=== PATIENT | female | born 1995 | race Caucasian/White ===

== ENCOUNTER 2016-11-21 21:06 | Observation (INO) | payer MEDICAID ==
[~2016-11-21] VITALS: Ht 175.3 cm; Wt 61.2 kg
[2016-11-21] VITALS (7 sets, daily range): BP systolic 108–124; BP diastolic 67–73; PULSE 110–132; RESP 18; TEMP 97.8
[~2016-11-21 21:06] MED LIST: CEPH-460 PO
[2016-11-21] MEDS ORDERED: LACTATED RINGER'S 1000 ML INJ 1,000 ML IV SCH (21:22)
--- NOTE | 2016-11-21 21:26 | PD ---
HPI Travel History International Travel<30 Days: No Contact w/Intl Traveler<30Days: No Known Affected Area: No History of Present Illness HPI This patient is a 21-year-old 1 para 0 EDC is January 07, 2017 at 33 weeks and 2 days she presents with the chief complaint of suprapubic lower abdominal pain since 5 PM no ruptured membranes no vaginal bleeding the baby is active she was in the sun for 3 hours today and severely sunburn on both lower extremities the pain is described as sharp intermittent she denies any urinary tract symptoms no dysuria she does have urinary frequency but no urgency no dribbling No fever possible chills History Past Medical History Narrative Medical No known drug allergies no major medical problems Obstetric History Obstetric History History of back surgery she has rods in her back Was hospitalized for kidney infection at age 5 Past Surgical History Narrative Surgical Back surgery Family History Family History: Negative Social History Alcohol Use: No Tobacco Use: No (stopped smoking) Substance Abuse: No Allergies-Medications (Allergen,Severity, Reaction): Coded Allergies: No Known Allergies (Verified , 06/29/16) Home Meds Active Scripts Cephalexin (Keflex)500 Mg [id number] Mg PO Q8H #30 CAP Ref 0 Prov:Ervin Morrison MD 06/29/16 Review of Systems General / Constitutional: Chills Eyes: No: Diploplia, Blurred Vision, Visual changes, Pain, Photophobia, Other HENT: No: Headaches, Vertigo, Dental Difficulties, Lightheadedness, Other Cardiovascular: No: Irregular Rhythm, Chest Pain or Discomfort, Palpitations, Tachycardia, Syncope, Varicosities, Edema, Cyanosis, Other Respiratory: No: Cough, Short of Breath, Wheezing, Other Gastrointestinal: Abdominal Pain (as per history of present illness), Other ( urinary frequency) Genitourinary: Frequency Neurologic: No: Weakness, Dizziness, Syncope, Focal Abnormalities, Coordination Problem, Headache, Slurred Speech, Seizures, Other Psychiatric: No: Anxiety, Depression, Suicidal Ideations, Disorder of Thought, Mood Disorder, Substance Abuse, Homicidal Ideation, Other Physical Exam Narrative GENERAL: Well-nourished, well-developed patient. Alert oriented 3 and cooperative in moderate distress secondary to a sunburn SKIN: Warm and dry. HEAD: Normocephalic and atraumatic. EYES: No scleral icterus. No injection or drainage. ENT: No nasal drainage noted. Mucous membranes pink. Airway patent. NECK: Supple, trachea midline. No JVD. CARDIOVASCULAR: Regular rate and rhythm without murmurs, gallops, or rubs. RESPIRATORY: Breath sounds equal bilaterally. No accessory muscle use. ABDOMEN/GI: Abdomen soft, non-tender, bowel sounds present, no rebound, no guarding gravid consistent with stated gestational age of 33 weeks soft nontender no palpable contractions no epigastric or right upper quadrant tenderness no rebound tenderness Gravid to [-] weeks size 33 weeks Fundal Height: [-] GENITOURINARY: External Genitalia: intact and normal in appearance BUS glands: [-] Cervix: [-] Posterior soft Dilatation: [-] Closed Effacement: [-] 25% effaced Station: [-] Ballotable Presentation: [-] Vertex Membranes: [intact Uterine Contractions: [-] Irritability FHT's: Category: [-] 1 Baseline: [-]150 Reactive: [-] + Variability: [-] Moderate Decels: [-] 0 EXTREMITIES: No cyanosis trace edema of her lower extremities severe sunburn of both the anterior surface of both lower extremities and abdomen NEUROLOGICAL: Awake and alert. Motor and sensory grossly within normal limits. Five out of 5 muscle strength in all muscle groups. Normal speech. Data Data Vital Signs Reviewed: Yes (blood pressures 124/73 pulse is 117 temperatures 97.8) Orders Vital Signs (Adult) .ON ADMISSION (11/21/16 21:22) ^ Labor Status (11/21/16 21:22) Urinalysis - C+S If Indicated (11/21/16 21:22) ^ Hydration (11/21/16 21:22) Lactated Ringer's 1000 Ml Inj (Lr 1000 M (11/21/16 21:22) MDM Medical Record Reviewed: No Interpretation(s) 21-year-old at 33 weeks and 2 days Not in labor Severe sunburn lower extremities Dehydration Uterine irritability Narrative Course / MDM Urinalysis was indicative of urinary tract infection Patient given IV fluid hydration and Rocephin 1 g IV With monitor adjusted patient having contractions every 2 minutes she is not feeling them reexamination of the cervix indicates no cervical change Baby appeared to have had variable decelerations however presently no decelerations and no decelerations with contractions i.e. negative contraction stress test Bedside ultrasound shows the amniotic fluid index of 13 BPD consistent with 35 weeks In view of the variable decelerations and the consistent contractions spoke with Dr. Gale we'll admit the patient overnight for 24-hour observation Procardia by mouth for the contractions if they do not resolve magnesium sulfate We'll continue monitoring as well as IV fluid hydration CBC CMP urine drug screen pending Plan External monitoring IV fluid hydration with lactated Ringer's at 1 25 cc an hour bolus with about 300 cc Urinalysis Silvadene cream for the burn Reevaluation Diagnosis Diagnosis: Primary Impression: 33 weeks gestation of Additional Impressions: Sunburn Dehydration Josseline Finnegan MD Nov 21, 2016 21:25
[2016-11-21] MEDS ORDERED: CALAMINE LOTION 180 APPLIC/180 ML BTL TOPICAL ONE (21:45)
[2016-11-21 21:53] LABS: BACTERIA, URINE MOD /hpf; BLOOD, URINE NEG (NEG); COMMENT (UR) CULTURE INDICATED; CULTURE IF INDICATED CULTURE INDICATED; GLUCOSE,URINE NEG (NEG); KETONE, URINE NEG (NEG); MUCUS URINE MANY /lpf (OCC); NITRITE,URINE NEG (NEG); SQUAMOUS EPITHELIAL CELL URINE 27 /hpf (0-5); TRANSITIONAL EPI CELLS, URINE 1 /hpf; URINE COLOR YELLOW (YELLW/STRAW)
[2016-11-21] MEDS ORDERED: cefTRIAXone 1,000 MG/NS 100 ML IV ONE ×2 (22:45)
[2016-11-21] MEDS ORDERED: SODIUM CHLOR 0.9% 1000 ML INJ 1,000 ML IV ONE (22:45)
[2016-11-21] MEDS ORDERED: ACETAMINOPHEN 325 MG TAB PO ONE (23:30)
[2016-11-21 23:59] LABS: AUTOMATED NEUTROPHIL # 14.1 TH/MM3 (1.8-7.7); BASOPHIL # 0.1 TH/MM3 (0-0.2); BASOPHIL % 0.5 % (0.0-2.0); EOSINOPHIL # 0.1 TH/MM3 (0-0.4); EOSINOPHIL % 0.3 % (0.0-4.0); HEMATOCRIT 33.3 % (35.0-46.0); HEMO FLAGS DIFF FINAL; LYMPH % 5.6 % (9.0-44.0); LYMPHOCYTE # 0.9 TH/MM3 (1.0-4.8); MEAN CELL VOLUME 86.6 FL (80.0-100.0); MEAN CORPUSCULAR HEMOGLOBIN 28.3 PG (27.0-34.0); MEAN CORPUSCULAR HGB CONC 32.7 % (32.0-36.0); MONO % 9.3 % (0.0-8.0); NEUT % 84.3 % (16.0-70.0); PLATELET COUNT 302 TH/MM3 (150-450); RED BLOOD COUNT 3.85 MIL/MM3 (4.00-5.30); WHITE BLOOD COUNT 16.7 TH/MM3 (4.0-11.0)
[2016-11-22] VITALS: RESP 18
[2016-11-22] MEDS ORDERED: LACTATED RINGER'S 1000 ML INJ 1,000 ML IV SCH (00:06)
[2016-11-22] MEDS ORDERED: SODIUM CHLORIDE 0.9% FLUSH 10 ML FLUSH IV FLUSH PRN (00:15)
[2016-11-22] MEDS ORDERED: ONDANSETRON HCL 4 MG/2 ML VIAL IV PRN (00:15)
[2016-11-22] MEDS ORDERED: BETAMETHASONE SOD PHOS/ACETATE SUSP 30 MG/5 ML VIAL IM SCH (00:15)
[2016-11-22] MEDS ORDERED: ACETAMINOPHEN 325 MG TAB PO PRN (00:15)
[2016-11-22] MEDS ORDERED: ZOLPIDEM TARTRATE 5 MG TAB PO PRN (00:15)
[2016-11-22 00:16] LABS: ALT (GPT) 15 U/L (9-42); ANION GAP 9 MEQ/L (5-15); AST (GOT) 13 U/L (16-38); BICARBONATE 23.9 MEQ/L (21.0-32.0); BLOOD UREA NITROGEN 9 MG/DL (7-18); CHLORIDE 104 MEQ/L (98-107); GLOMERULAR FILTRATION RATE 141 ML/MIN (>89); SODIUM (NA) 137 MEQ/L (136-145)
[2016-11-22 00:18] LABS: ALKALINE PHOSPHATASE 166 U/L (45-117); TOTAL BILIRUBIN ADULT 0.4 MG/DL (0.2-1.0)
[2016-11-22] MEDS: NIFEdipine 10 MG CAP PO SCH ×2 (00:21→08:51)
[2016-11-22 00:54] VITALS: BP 100/58; PULSE 121
[2016-11-22 01:13] LABS: AMPHETAMINE, URINE NEG (NEG); BARBITURATES, URINE NEG (NEG); COCAINE, URINE NEG (NEG)
--- NOTE | 2016-11-22 07:41 | PD.OB.ANTE ---
Subjective Diagnosis: (1) Dehydration Diagnosis: Principal (2) 33 weeks gestation of Diagnosis: Principal (3) Sunburn Diagnosis: Principal (4) UTI (urinary tract infection) Diagnosis: Principal Antepartum ROS: Reports: movement normal, Denies: New complaints, Loss of fluid, Vaginal bleeding, Contractions, Other Objective Vital Signs Vital Signs Date Time Temp Pulse Resp B/P Pulse Ox O2 Delivery O2 Flow Rate FiO2 11/22/16 00:54 121 100/58 11/22/16 00:00 18 11/21/16 23:55 118 11/21/16 23:54 117 108/67 11/21/16 23:50 110 11/21/16 23:45 117 11/21/16 21:30 18 11/21/16 21:27 132 124/73 11/21/16 21:27 97.8 11/21/16 21:25 122 Lab & Micro Results Test 11/21/16 11/21/16 21:20 21:45 Urine Color YELLOW Urine Turbidity HAZY Urine pH 6.0 Urine Specific [place] 1.029 Urine Protein 30 mg/dL Urine Glucose (UA) NEG mg/dL Urine Ketones NEG mg/dL Urine Occult Blood NEG Urine Nitrite NEG Urine Bilirubin NEG Urine Urobilinogen 2.0 MG/DL Urine Leukocyte Esterase LARGE Urine RBC 6 /hpf Urine WBC 71 /hpf Urine Squamous Epithelial 27 /hpf Cells Urine Transitional Epithelial 1 /hpf Cells Urine Bacteria MOD /hpf Urine Mucus MANY /lpf Microscopic Urinalysis Comment CULTURE INDICATED Urine Opiates Screen NEG Urine Barbiturates Screen NEG Urine Amphetamines Screen NEG Urine Benzodiazepines Screen NEG Urine Cocaine Screen NEG Urine Cannabinoids Screen NEG White Blood Count 16.7 TH/MM3 Red Blood Count 3.85 MIL/MM3 Hemoglobin 10.9 GM/DL Hematocrit 33.3 % Mean Corpuscular Volume 86.6 FL Mean Corpuscular Hemoglobin 28.3 PG Mean Corpuscular Hemoglobin 32.7 % Concent Red Cell Distribution Width 13.0 % Platelet Count 302 TH/MM3 Mean Platelet Volume 8.7 FL Neutrophils (%) (Auto) 84.3 % Lymphocytes (%) (Auto) 5.6 % Monocytes (%) (Auto) 9.3 % Eosinophils (%) (Auto) 0.3 % Basophils (%) (Auto) 0.5 % Neutrophils # (Auto) 14.1 TH/MM3 Lymphocytes # (Auto) 0.9 TH/MM3 Monocytes # (Auto) 1.6 TH/MM3 Eosinophils # (Auto) 0.1 TH/MM3 Basophils # (Auto) 0.1 TH/MM3 CBC Comment DIFF FINAL Differential Comment Sodium Level 137 MEQ/L Potassium Level 4.0 MEQ/L Chloride Level 104 MEQ/L Carbon Dioxide Level 23.9 MEQ/L Anion Gap 9 MEQ/L Blood Urea Nitrogen 9 MG/DL Creatinine 0.55 MG/DL Estimat Glomerular Filtration 141 ML/MIN Rate Random Glucose 78 MG/DL Calcium Level 8.7 MG/DL Total Bilirubin 0.4 MG/DL Aspartate Amino Transf 13 U/L (AST/SGOT) Alanine Aminotransferase 15 U/L (ALT/SGPT) Alkaline Phosphatase 166 U/L Total Protein 7.2 GM/DL Albumin 3.1 GM/DL Date/Time Procedure Status Source Growth 11/21/16 21:20 Urine Culture Received Urine Clean Catch Pending Physical Exam GENERAL: Well-nourished, well-developed patient. CARDIOVASCULAR: Regular rate and rhythm without murmurs, gallops, or rubs. RESPIRATORY: Breath sounds equal bilaterally. No accessory muscle use. ABDOMEN/GI: Abdomen soft, non-tender. Fundus: [33] GENITOURINARY: External Genitalia: intact and normal in appearance Cervix: [post] Dilatation: [cl] Effacement: [25] Station: [-3] Presentation: [vtx] Membranes: [-] Uterine Contractions: [none] FHT's: Category: [I] Baseline: [120] Reactive: [y] Variability: [y] Decels: [n] EXTREMITIES: No cyanosis or edema, non-tender, without signs of DVT. Assessment and Plan Problem List: (1) UTI (urinary tract infection) Status: Acute (2) 33 weeks gestation of Status: Acute (3) Dehydration Status: Acute (4) Sunburn Status: Acute Assessment and Plan 21 yo G1 at 33w3d admit overnight for c/o contractions, finding of UTI and dehydration with recent over-sun exposure and severe sunburn on LE b/l 1) ctx: resolved s/p IV fluid hydration, cervix remains closed; pt did receive single dose of IM betamethasone on admission 2) sunburn: feeling better s/p topical burn cream, was given tube for discharge 3) UTI: s/p IV Rocephin, will plan repeat UCx in 1 week 4) dispo: d/c to home today, has office f/u tmrw with ultrasound with Nidhi Arora MD Nov 22, 2016 07:40
--- NOTE | 2016-11-22 07:44 | HHI.DCPOC ---
Discharge Care Plan Diagnosis: (1) Dehydration (2) 33 weeks gestation of Your Health Problems Are: Urinary difficulties Report Symptoms to Your Doctor -Temperate above 100.5 degrees -Redness, of incision or excessive or foul smelling drainage -Unusual pain or calf pain -Increased vaginal bleeding -Painful or difficulty urinating -Feelings of extreme sadness or anxiety after 2 weeks Goals to Promote Your Health * To prevent worsening of your condition and complications * To maintain your health at the optimal level Directions to Meet Your Goals Take your medications as prescribed Follow your dietary instruction Follow activity as directed Ensure plenty of rest for recovery Drink fluids for hydration Keep your appointments as scheduled Take your immunizations and boosters as scheduled If your symptoms worsen call your PCP, if no PCP go to Urgent Care Center or Emergency Room Smoking is Dangerous to Your Health. Avoid second hand smoke Call the 24-hour crisis hotline for domestic abuse at Nidhi Mims MD Nov 22, 2016 07:44
[2016-11-22] MEDS ORDERED: SODIUM CHLORIDE 0.9% FLUSH 10 ML FLUSH IV FLUSH SCH (09:00)
[2016-11-25 10:27] LABS: PHENCYCLIDINE URINE NEG (NEG)
[2016-11-25 10:28] LABS: BATH SALTS (MDPV) UR NEG (NEG); ECSTASY (MDMA) UR NEG (NEG); HEROIN (6-ACETYLMORPHINE) UR NEG (NEG); K2 SPICE UR NEG (NEG); OBMETHADONE UR NEG (NEG); OXYCODONE (PERCODAN) NEG (NEG)
== END 2016-11-22 13:14 | disposition home or self-care (01) ==
LOC: HOBED 21:06 → H2EA 11-22 00:16
PROVIDERS: ADMIT Obstetrics & Gynecology; ATTEND Obstetrics & Gynecology
DX: O26.93 Pregnancy related conditions, unspecified, third trimester (principal); Z3A.33 33 weeks gestation of pregnancy; O23.43 Unspecified infection of urinary tract in pregnancy, third trimester; E86.0 Dehydration; L55.9 Sunburn, unspecified; B96.89 Other specified bacterial agents as the cause of diseases classified elsewhere
CPT/HCPCS: 76816; 76819; 80053; 80307; 81001; 85025; 87086; 96361; 96374; 99285; G0378; G0481; J0696; J0702; J7030; J7120; 80352; 80354; 80356; 80358; 80359; 80371; 83992; G0480

== ENCOUNTER 2016-11-26 19:04 | Observation (INO) | payer MEDICAID ==
[2016-11-26] MEDS ORDERED: DEXT 5%-NACL 0.9% 1000 ML INJ 1,000 ML IV ONE (19:45)
[2016-11-26] MEDS ORDERED: ONDANSETRON HCL 4 MG/2 ML VIAL IV ONE (19:45)
[2016-11-26 20:16] LABS: HEMATOCRIT 33.4 % (35.0-46.0); MEAN CELL VOLUME 85.7 FL (80.0-100.0); MEAN CORPUSCULAR HEMOGLOBIN 27.8 PG (27.0-34.0); MEAN CORPUSCULAR HGB CONC 32.4 % (32.0-36.0); PLATELET COUNT 261 TH/MM3 (150-450); RED CELL DISTRIBUTION WIDTH 12.9 % (11.6-17.2); REVIEW FLAG FINAL; WHITE BLOOD COUNT 11.6 TH/MM3 (4.0-11.0)
[2016-11-26 20:22] LABS: BLOOD, URINE NEG (NEG); COMMENT (UR) CULT NOT INDICATED; CULTURE IF INDICATED CULT NOT INDICATED; GLUCOSE,URINE NEG (NEG); KETONE, URINE 80 mg/dL (NEG); MUCUS URINE FEW /lpf (OCC); NITRITE,URINE NEG (NEG); SQUAMOUS EPITHELIAL CELL URINE 18 /hpf (0-5); URINE COLOR YELLOW (YELLW/STRAW)
[2016-11-26 20:45] LABS: ANION GAP 11 MEQ/L (5-15); AST (GOT) 16 U/L (16-38); BICARBONATE 23.4 MEQ/L (21.0-32.0); BLOOD UREA NITROGEN 7 MG/DL (7-18); CHLORIDE 102 MEQ/L (98-107); GLOMERULAR FILTRATION RATE 141 ML/MIN (>89); POTASSIUM 3.9 MEQ/L (3.5-5.1); SODIUM (NA) 136 MEQ/L (136-145)
[2016-11-26 20:48] LABS: ALKALINE PHOSPHATASE 163 U/L (45-117); ALT (GPT) 13 U/L (9-42); TOTAL BILIRUBIN ADULT 0.6 MG/DL (0.2-1.0)
--- NOTE | 2016-11-26 21:45 | HHI.HP ---
HPI Chief Complaint Nausea/Vomiting Date Seen: Nov 26, 2016 Time Seen: 21:00 Travel History International Travel<30 Days: No Contact w/Intl Traveler<30Days: No Known Affected Area: No History of Present Illness HPI 21y/o , IUP at 34.0 PNC complicated by recently diagnosed coarctation of the aorta (diagnosed ) Patient presents c/o onset on nausea and vomiting since she got up at about 10: 30 this morning. She reports more than 10 episodes of emesis and has been unable to tolerate any po; she reports that everything she eats or drinks she throws up. She denies any ill contacts or known ingestion of contaminated or spoiled food. There is no aggravating or alleviating factors and no attempted treatments. She denies any diarrhea, fevers, or chills. She reports some mild cramping and tightening that has been occurring since the onset of the nausea and vomiting, but is unable to quantify the time. She reports good FM. She denies any LOF or VB. She has no other ob complaints. Para: 0 : 1 History Past Medical History Medical History: Denies Significant Hx Obstetric History Obstetric History Denies abnl PAPs or STDs Past Surgical History Narrative Surgical H/o spinal fusion with tethered cord and insertion of metal rods Family History Family History: Negative Social History Alcohol Use: No Tobacco Use: No Substance Abuse: No Allergies-Medications (Allergen,Severity, Reaction): Coded Allergies: No Known Allergies (Verified , 06/29/16) Home Meds Discontinued Scripts Cephalexin (Keflex)500 Mg [id number] Mg PO Q8H #30 CAP Ref 0 Prov:Ervin Morrison MD 06/29/16 Review of Systems Except as stated in HPI: all other systems reviewed are Neg Gastrointestinal: Nausea, Vomiting, Abdominal Pain Physical Exam Narrative GENERAL: Well-nourished, well-developed patient. A&Ox3 SKIN: Warm and dry. No rashes/lesions except sunburn on anterior portion of bilateral lower extremities, lower left with blistered sunburns HEAD: Normocephalic and atraumatic. EYES: No scleral icterus. No injection or drainage. ENT: No nasal drainage noted. Mucous membranes pink. Airway patent. NECK: Supple, trachea midline. CARDIOVASCULAR: Regular rate and rhythm without murmurs, gallops, or rubs. RESPIRATORY: Breath sounds equal bilaterally. No accessory muscle use. BREASTS: Deferred ABDOMEN/GI: Abdomen soft, non-tender, bowel sounds present, no rebound, no guarding Gravid GENITOURINARY: External Genitalia: intact and normal in appearance BUS glands:normal Cervix: no cervical/vaginal masses, physiologic d/c, FFN collected/discarded , normal rugae, SVE closed/thick/high and posterior/firm Membranes: intact Uterine Contractions: uterine irritability, improved after IV hydration FHT's: 140s and now with moderate LTV, good accels, and no decels. However, a few intermittent variables were noted initially and a spontaneous decel with moderate variability throughout. These resolved with IV hydration, with no further decels noted and currently category 1 tracing EXTREMITIES: No cyanosis or edema. BACK: Nontender without obvious deformity. Psych: grossly normal memory/affect MS grossly normal ROM, gait, muscle strength NEUROLOGICAL: Awake and alert. Motor and sensory grossly within normal limits. Five out of 5 muscle strength in all muscle groups. Normal speech. Data Data Vital Signs Reviewed: Yes Orders Dext 5%-Nacl 0.9% 1000 Ml Inj (D5w-Ns 10 (11/26/16 19:45) Vital Signs (Adult) .ON ADMISSION (11/26/16 19:37) ^ Labor Status (11/26/16 19:37) Urinalysis - C+S If Indicated (11/26/16 19:37) Cbc No Diff, Includes Plts (11/26/16 19:37) Comprehensive Metabolic Panel (11/26/16 19:37) Ondansetron Inj (Zofran Inj) (11/26/16 19:45) Ob (2e) Additional Admit Info (11/26/16 21:07) Labs Laboratory Tests Test 11/26/16 19:59 White Blood Count 11.6 Red Blood Count 3.90 Hemoglobin 10.8 Hematocrit 33.4 Mean Corpuscular Volume 85.7 Mean Corpuscular Hemoglobin 27.8 Mean Corpuscular Hemoglobin 32.4 Concent Red Cell Distribution Width 12.9 Platelet Count 261 Mean Platelet Volume 7.9 Urine Color YELLOW Urine Turbidity HAZY Urine pH 8.0 Urine Specific [place] 1.021 Urine Protein 30 Urine Glucose (UA) NEG Urine Ketones 80 Urine Occult Blood NEG Urine Nitrite NEG Urine Bilirubin NEG Urine Urobilinogen 2.0 Urine Leukocyte Esterase SMALL Urine RBC 3 Urine WBC 6 Urine Squamous Epithelial 18 Cells Urine Mucus FEW Microscopic Urinalysis Comment CULT NOT INDICATED Sodium Level 136 Potassium Level 3.9 Chloride Level 102 Carbon Dioxide Level 23.4 Anion Gap 11 Blood Urea Nitrogen 7 Creatinine 0.55 Estimat Glomerular Filtration 141 Rate Random Glucose 72 Calcium Level 8.3 Total Bilirubin 0.6 Aspartate Amino Transf 16 (AST/SGOT) Alanine Aminotransferase 13 (ALT/SGPT) Alkaline Phosphatase 163 Total Protein 6.8 Albumin 2.7 Assessment/Plan Assessment and Plan A/P: 21y/o 1. IUP at 34.0 2. Nausea/vomiting/dehydration: likely secondary to mild viral gastroenteritis. Patient failed po challenge despite IV hydration/antiemetics. Will admit to Dr. Gee for continued IV hydration and antiemetic therapy overnight. Discussed with Dr. Gee who assumed care for the patient. 3. UA: consistent with dehydration, no culture indicated 4. coarctation of aorta 5. wellbeing: discussed FHR tracing with Dr. Gee with several intermittent variables and a spontaneous deceleration after presentation with resolution and subsequent reactive/reassuring FHR. Will continue EMF monitoring overnight. Attending Attestation NST report: Indications: IUP at 34w, cardiac malformation, N/V, dehydration, abdominal pain with tightening Baseline: 140s Variability: moderate Accels: good accels noted Decels: initailly with a few intermittent variables and one spontaneous deceleration with moderate variability throughout, all just after initial patient presentation, all resolved with IV hydration Reactive: reactive NST Final dx: IUP at 34w, N/V/dehydration from probable viral gastroenteritis, false labor, cardiac defect F/U with continued EFM Saniya Oliveira MD Nov 26, 2016 21:45
[2016-11-26 21:57] VITALS: BP 120/67; PULSE 107
[2016-11-26 21:58] VITALS: RESP 18
[2016-11-26] MEDS ORDERED: SODIUM CHLORIDE 0.9% FLUSH 10 ML FLUSH IV FLUSH SCH (22:00)
[2016-11-26] MEDS ORDERED: DEXTROSE 5%-LACTATED RING INJ 1,000 ML IV SCH (22:00)
[2016-11-26] MEDS ORDERED: ONDANSETRON HCL 4 MG/2 ML VIAL IV PRN (22:00)
[2016-11-26] MEDS ORDERED: SODIUM CHLORIDE 0.9% FLUSH 10 ML FLUSH IV FLUSH PRN (22:00)
--- NOTE | 2016-11-27 08:27 | PD.OB.ANTE ---
Subjective Diagnosis: (1) Nausea and vomiting during Diagnosis: Principal (2) 34 weeks gestation of Diagnosis: Secondary Antepartum ROS: Reports: movement normal, Denies: New complaints, Loss of fluid, Vaginal bleeding, Contractions, Other Objective Vital Signs Vital Signs Date Time Temp Pulse Resp B/P Pulse Ox O2 Delivery O2 Flow Rate FiO2 11/26/16 21:58 18 11/26/16 21:57 107 120/67 Lab & Micro Results Test 11/26/16 11/26/16 19:59 20:48 White Blood Count 11.6 TH/MM3 Red Blood Count 3.90 MIL/MM3 Hemoglobin 10.8 GM/DL Hematocrit 33.4 % Mean Corpuscular Volume 85.7 FL Mean Corpuscular Hemoglobin 27.8 PG Mean Corpuscular Hemoglobin 32.4 % Concent Red Cell Distribution Width 12.9 % Platelet Count 261 TH/MM3 Mean Platelet Volume 7.9 FL Urine Color YELLOW Urine Turbidity HAZY Urine pH 8.0 Urine Specific [place] 1.021 Urine Protein 30 mg/dL Urine Glucose (UA) NEG mg/dL Urine Ketones 80 mg/dL Urine Occult Blood NEG Urine Nitrite NEG Urine Bilirubin NEG Urine Urobilinogen 2.0 MG/DL Urine Leukocyte Esterase SMALL Urine RBC 3 /hpf Urine WBC 6 /hpf Urine Squamous Epithelial 18 /hpf Cells Urine Mucus FEW /lpf Microscopic Urinalysis Comment CULT NOT INDICATED Sodium Level 136 MEQ/L Potassium Level 3.9 MEQ/L Chloride Level 102 MEQ/L Carbon Dioxide Level 23.4 MEQ/L Anion Gap 11 MEQ/L Blood Urea Nitrogen 7 MG/DL Creatinine 0.55 MG/DL Estimat Glomerular Filtration 141 ML/MIN Rate Random Glucose 72 MG/DL Calcium Level 8.3 MG/DL Total Bilirubin 0.6 MG/DL Aspartate Amino Transf 16 U/L (AST/SGOT) Alanine Aminotransferase 13 U/L (ALT/SGPT) Alkaline Phosphatase 163 U/L Total Protein 6.8 GM/DL Albumin 2.7 GM/DL Fibronectin NEGATIVE Physical Exam GENERAL: Well-nourished, well-developed patient. CARDIOVASCULAR: Regular rate and rhythm without murmurs, gallops, or rubs. RESPIRATORY: Breath sounds equal bilaterally. No accessory muscle use. ABDOMEN/GI: Abdomen soft, non-tender. Fundus: [c/w dates] GENITOURINARY: External Genitalia: deferred FHT's: Category: [I] Baseline: [130s] Reactive: [y] Variability: [y] Decels: [n] EXTREMITIES: No cyanosis or edema, non-tender, without signs of DVT. Blistering of L LE from sunburn; healing sunburn on R LE Assessment and Plan Problem List: (1) Nausea and vomiting during Status: Acute (2) 34 weeks gestation of Status: Acute Assessment and Plan A/P: 21y/o 1. IUP at 34.0 2. Nausea/vomiting/dehydration: likely secondary to mild viral gastroenteritis. on admit patient failed po challenge despite IV hydration/antiemetics. Admitted overnight for obs/continued IV hydration and antiemetic therapy; no further episodes of emesis; no diarrhea; normal labs, urine culture neg; d/c to home today with BRAT diet & f/u in office in 2-3 days. 3. coarctation of aorta - Dr. Palacios is primary OB & is in process of transferring care to [facility] as pt needs delivery at level 3 NICU 5. status: Cat I tracing currently. Nidhi Mims MD Nov 27, 2016 08:27
--- NOTE | 2016-11-27 08:31 | HHI.DS ---
Discharge Summary Admission Date Nov 26, 2016 at 21:16 Discharge Date: Nov 27, 2016 Admitting Diagnosis nausea/vomiting, 34 weeks (1) Nausea and vomiting during Diagnosis: Principal (2) 34 weeks gestation of Diagnosis: Secondary Procedures IV fluid hydration, monitoring Brief History 21 yo G1 at 34 wks admit overnight for N/V failed PO challenge, suspected mild viral gastroenteritis. CBC/BMP: 11/26/16195811/26/161958 Significant Findings Laboratory Tests Test 11/26/16 19:59 White Blood Count 11.6 TH/MM3 (4.0-11.0) Red Blood Count 3.90 MIL/MM3 (4.00-5.30) Hemoglobin 10.8 GM/DL (11.6-15.3) Hematocrit 33.4 % (35.0-46.0) Urine Turbidity HAZY (CLEAR) Urine Protein 30 mg/dL (NEG-TRACE) Urine Ketones 80 mg/dL (NEG) Urine Leukocyte Esterase SMALL (NEG) Urine WBC 6 /hpf (0-5) Urine Mucus FEW /lpf (OCC) Random Glucose 72 MG/DL (74-106) Calcium Level 8.3 MG/DL (8.5-10.1) Alkaline Phosphatase 163 U/L (45-117) Albumin 2.7 GM/DL (3.4-5.0) PE at Discharge A&Ox3, NAD, sitting up in bed, talking CTA b/l no wheeze RRR gravid c/w dates deferred LLE with blistering sunburn; RLE with sunburn, intact skin Hospital Course Pt admitted overnight after failing PO challenge in triage; labs wnl, no electrolyte abnormalities, no diarrhea or fevers, urine negative; overnight pt had no further episodes of emesis, suspect mild viral gastroenteritis, discharge to home with precautions and office f/u in 2-3 days. Pt Condition on Discharge: Good Discharge Disposition: Discharge Home Discharge Instructions DIET: Follow Instructions for: Diet (BRAT diet for now) Activities you can perform: Partial Weight Bearing ( precautions) Activities to avoid: Strenuous Activity Nidhi Mims MD Nov 27, 2016 08:31
[2016-11-27 09:20] VITALS: BP 107/67; PULSE 100
[2016-11-27 09:22] VITALS: TEMP 98.9
== END 2016-11-27 09:54 | disposition home or self-care (01) ==
LOC: HOBED 19:04 → H2EA 21:13 → UNDOADMIN 21:13 → H2EA 21:16
PROVIDERS: ADMIT Obstetrics & Gynecology; ATTEND Obstetrics & Gynecology
DX: O21.2 Late vomiting of pregnancy (principal); O99.283 Endocrine, nutritional and metabolic diseases complicating pregnancy, third trimester; E86.0 Dehydration; O35.8XX0 Maternal care for other (suspected) fetal abnormality and damage, not applicable or unspecified; O99.713 Diseases of the skin and subcutaneous tissue complicating pregnancy, third trimester; L55.1 Sunburn of second degree; Z3A.34 34 weeks gestation of pregnancy
CPT/HCPCS: 80053; 81001; 82731; 85027; 96360; 99285; G0378; J2405; J7042

== ENCOUNTER 2018-01-20 14:44 | Emergency (ER) | payer SELFPAY ==
[~2018-01-20] VITALS: Ht 175.3 cm; Wt 53.4 kg
[2018-01-20 14:48] VITALS: BP 114/57; PULSE 104; RESP 16; TEMP 97.9; O2SAT 100
[2018-01-20 15:01] LABS: BILIRUBIN, URINE NEG (NEG); BLOOD, URINE MOD (NEG); GLUCOSE,URINE NEG (NEG); KETONE, URINE NEG (NEG); NITRITE,URINE POS (NEG); URINE COLOR YELLOW (YELLW/STRAW); URINE LEUKOCYTE ESTERASE LARGE (NEG)
--- NOTE | 2018-01-20 15:01 | PD ---
HPI Chief Complaint: Flank/Kidney Pain Time Seen by Provider: 14:52 Travel History International Travel<30 days: No Contact w/Intl Traveler<30days: No Traveled to known affect area: No History of Present Illness HPI The patient is a 22-year-old female who presents to the emergency department for right flank pain of 2-3 days duration. The patient states she has had some right mid back pain that radiates to the right flank of the last 2- 3 days. She does complain of mild dysuria, denies any new frequency, urgency, or hematuria. She denies any vaginal discharge or vaginal bleeding. Patient's last menstrual cycle was January 08, 2018, she denies . She denies any fever, chills, sweats, nausea, vomiting, or left-sided abdominal pain. She denies any known history of nephrolithiasis. She did have a kidney infection as a child. Symptoms are moderate. PFSH Past Medical History Narrative Medical Scoliosis Immunizations Current: Yes ?: Not LMP: 01/08/18 Past Surgical History Narrative Surgical Back surgery for scoliosis Social History Alcohol Use: No Tobacco Use: Yes Substance Use: No Allergies-Medications (Allergen,Severity, Reaction): Coded Allergies: No Known Allergies (Verified Adverse Reaction, Unknown, 01/20/18) Reported Meds & Prescriptions Reported Meds & Active Scripts Active No Active Prescriptions or Reported Medications Review of Systems Except as stated in HPI: all other systems reviewed are Neg General / Constitutional: No: Fever Cardiovascular: No: Chest Pain or Discomfort Respiratory: No: Shortness of Breath Gastrointestinal: No: Nausea, Vomiting, Diarrhea, Abdominal Pain Genitourinary: Positive: Dysuria, No: Urgency, Frequency, Hematuria, Discharge , Vaginal Bleeding Skin: No Rash Physical Exam Narrative GENERAL: Awake, alert, pleasant 22-year-old female who appears her stated age and is in no acute respiratory distress. SKIN: Focused skin assessment warm/dry. HEAD: Atraumatic. Normocephalic. EYES: No injection or drainage. ENT: No nasal bleeding or discharge. Mucous membranes pink and moist. NECK: Trachea midline. No JVD. CARDIOVASCULAR: Regular rate and rhythm. No murmur appreciated. RESPIRATORY: No accessory muscle use. Clear to auscultation. Breath sounds equal bilaterally. GASTROINTESTINAL: Abdomen soft, no suprapubic tenderness. Mild left flank tenderness. Back: Right CVA tenderness. Well-healed midline back scar from the superior thoracic region to the lower lumbar region. MUSCULOSKELETAL: No obvious deformities. No clubbing. No cyanosis. No edema. NEUROLOGICAL: Awake and alert. No obvious cranial nerve deficits. Motor grossly within normal limits. Normal speech. PSYCHIATRIC: Appropriate mood and affect; insight and judgment normal. Data Data Last Documented VS Vital Signs Date Time Temp Pulse Resp B/P (MAP) Pulse Ox O2 Delivery O2 Flow Rate FiO2 01/20/18 14:48 97.9 104 16 114/57 (76) 100 Orders Orders Urinalysis - C+S If Indicated (01/20/18 14:46) Ed Urine Pregnancytest Poc (01/20/18 14:46) Urine Culture (01/20/18 14:50) Ciprofloxacin (Cipro) (01/20/18 15:15) Ed Discharge Order (01/20/18 15:10) Labs Laboratory Tests Test 01/20/18 14:50 Urine Collection Type VOIDED Urine Color YELLOW Urine Turbidity SL CLOUDY Urine pH 6.0 Urine Specific [place] LESS/EQUAL 1.005 Urine Protein 30 mg/dL Urine Glucose (UA) NEG mg/dL Urine Ketones NEG mg/dL Urine Occult Blood MOD Urine Nitrite POS Urine Bilirubin NEG Urine Urobilinogen 0.2 MG/DL Urine Leukocyte Esterase LARGE Urine WBC INNUM /hpf Urine WBC Clumps RARE Urine Squamous Epithelial Cells 0-2 /hpf Urine Bacteria FEW /hpf Microscopic Urinalysis Comment CULTURE INDICATED MDM Medical Decision Making Medical Screen Exam Complete: Yes Emergency Medical Condition: Yes Medical Record Reviewed: Yes Interpretation(s) Laboratory Tests Test 01/20/18 14:50 Urine Collection Type VOIDED Urine Color YELLOW Urine Turbidity SL CLOUDY Urine pH 6.0 Urine Specific [place] LESS/EQUAL 1.005 Urine Protein 30 mg/dL Urine Glucose (UA) NEG mg/dL Urine Ketones NEG mg/dL Urine Occult Blood MOD Urine Nitrite POS Urine Bilirubin NEG Urine Urobilinogen 0.2 MG/DL Urine Leukocyte Esterase LARGE Urine WBC INNUM /hpf Urine WBC Clumps RARE Urine Squamous Epithelial Cells 0-2 /hpf Urine Bacteria FEW /hpf Microscopic Urinalysis Comment CULTURE INDICATED Differential Diagnosis Differential diagnosis includes pyelonephritis, nephrolithiasis, hydronephrosis , atypical appendicitis, ectopic , PID, cervicitis. Narrative Course A bedside UA test was obtained, was negative. UA was sent to lab. UA reveals nitrites, leukocyte esterase, and innumerable WBCs, consistent with pyelonephritis. The patient does not have a fever, there is no nausea or vomiting, therefore, was administered Cipro 500 mg orally. Culture has been sent to lab. Patient is advised to return for fever, intractable nausea/ vomiting or continuing symptoms despite antibiotics. Diagnosis Primary Impression: Pyelonephritis Patient Instructions: General Instructions Additional Instructions: Cipro as directed. Return for intractable nausea/vomiting, fever, or progressing symptoms. Follow-up with your primary physician. Drink plenty of fluids to stay hydrated. Med/Other Pt SpecificInfo: Prescription(s) given Scripts Ciprofloxacin (Cipro) 500 Mg Tab 500 MG PO BID for Infection for 7 Days, #14 TAB 0 Refills Prov: Blane Flores MD 01/20/18 Disposition: 01 DISCHARGE HOME Condition: Stable Blane Flores MD January 20, 2018 15:01
[2018-01-20 15:08] LABS: BACTERIA, URINE FEW /hpf; SQUAMOUS EPITHELIAL CELL URINE 0-2 /hpf (0-5); WBC, URINE INNUM /hpf (0-5); WHITE BLOOD CELL CLUMPS RARE
[2018-01-20] MEDS ORDERED: CIPR-9 PO (15:14)
[2018-01-20] MEDS ORDERED: CIPROFLOXACIN 500 MG TAB PO ONE (15:15)
[2018-01-20 15:27] VITALS: BP 112/55
== END 2018-01-20 15:39 | disposition home or self-care (01) ==
LOC: PHED 14:44
DX: N12 Tubulo-interstitial nephritis, not specified as acute or chronic (principal); B96.20 Unspecified Escherichia coli [E. coli] as the cause of diseases classified elsewhere; M41.9 Scoliosis, unspecified; Z72.0 Tobacco use
CPT/HCPCS: 81001; 84703; 87077; 87086; 87186; 99283